=== PATIENT | female | born 1950 | race Caucasian/White ===

== ENCOUNTER → 2017-12-16 | Outpatient (CLI) | payer OTHER, MEDICAID ==
[~2017-12-16] MED LIST: ASPIRIN325; ATIVAN1 MG PO; CRESTOR20 MG; DILTIAZEM ER240 M1; IRON325 PO; LOPRESSOR; NEXIUM40 MG; PAROXETINE HCL30 MG; SYNTHROID25 MCG PO; TOPROL XL100 MG PO
== END ==
LOC: M.RAD 11:30
DX: Z12.31 Encounter for screening mammogram for malignant neoplasm of breast (principal)